=== PATIENT | male | born 1980 | race Caucasian/White ===

== ENCOUNTER 2021-01-20 15:38 | Emergency (ER) | payer SELFPAY ==
[2021-01-20] MEDS ORDERED: Ondansetron 4 MG Tab.DIS PO ONE (15:39)
[2021-01-20] MEDS ORDERED: Acetaminophen/oxyCODONE 325-5 MG Tab PO ONE (15:39)
[2021-01-20] MEDS ORDERED: Sodium Chloride 0.9% 10 ML Syringe FLUSH PRN (15:46)
[2021-01-20] MEDS ORDERED: HYDROmorphone 2 MG/ML SDV IVPUSH STA (15:51)
[2021-01-20] MEDS ORDERED: Ondansetron 4 MG/2 ML SDV IVPUSH STA (15:51)
[2021-01-20] MEDS ORDERED: Iopamidol 755 Mg/ML 100 ML Bottle IV ONE (15:58)
[2021-01-20] MEDS ORDERED: Sodium Chloride 0.9% 1,000 ML IV SCH (16:00)
[2021-01-20] MEDS ORDERED: Labetalol 20 MG/4 ML Syringe IVPUSH STA ×2 (16:10→17:01)
[2021-01-20] MEDS ORDERED: Labetalol 20 MG/4 ML Syringe IVPUSH ONE (16:49)
--- NOTE | 2021-01-20 17:28 | CT ---
INDICATION: Headache. Dizziness. CT HEAD WITHOUT CONTRAST: Spiral 3.75 mm axial sections were obtained through the brain without contrast with axial, sagittal and coronal reconstructions 01/20/21 - no comparisons. Total exam DLP was 1451.16 mGy-cm. Paranasal sinuses appeared normal. There are only a few ethmoidal air cells which do appear to be aerated. No cranial abnormality was identified. No shift of midline structures, ventricular abnormalities, or abnormal areas of density were identified. Torres-white matter interface appears normal. Calcifications are noted in the internal carotid and vertebral arteries. The orbits appear to be intact. IMPRESSION: Except for calcifications noted in the vertebral and internal carotid arteries, normal CT head without contrast - no acute intracranial abnormality. Follow-up MRI may be warranted if symptoms persist, as felt to be clinically necessary. Report was called to Dr. Myers at 1711 hours 01/20/21. [facility]
--- NOTE | 2021-01-20 17:32 | CR ---
INDICATION: Fever and cough. CHEST: An AP upright view of the chest was obtained 01/20/21 - no comparisons. Overlying EKG leads noted. The heart, mediastinum and bony thorax are unremarkable. A definite active infiltrate, effusion or pneumothorax was not identified. IMPRESSION: No definite active disease. MTDD
--- NOTE | 2021-01-20 17:40 | CT ---
INDICATION: Right and left lower quadrant pain. CT ABDOMEN AND PELVIS WITH CONTRAST: Spiral 3.75 mm axial sections were obtained through the abdomen and pelvis with 100 mL Isovue-370 (at 3 mL/second) with sagittal and coronal reconstructions 01/20/21 - no comparisons. Total exam DLP was 1617.94 mGy-cm. The lower lung whitlock and pleural spaces visualized appeared normal. The heart appeared normal in size. No pericardial effusion was seen. The appendix appeared normal, visualized on axial images 94-102 and coronal images 50-58. No evidence of free air or bowel obstruction was identified. The urinary bladder appears somewhat distended, raising question of urinary retention - correlate clinically. The prostate did not appear grossly enlarged. A right inguinal hernia is noted including only fat. It is small in size. No ventral hernia was suggested. The liver, gallbladder, adrenal glands, spleen, pancreas and common bile duct appear to be normal. The kidneys appeared normal except to note a few dense foci which may represent renal calcinosis and a small low-density lesion in the upper pole of the left kidney, likely a simple cyst. No definite obstructive uropathy is seen. Calcifications noted in the abdominal aorta, iliac and left femoral arteries as well as minimally in the right femoral artery. No retroperitoneal mass was seen with minimal retroperitoneal lymphadenopathy noted which is nonspecific. No gross bony abnormality was identified. IMPRESSION: 1. Possible urinary retention. 2. ASD. 3. Probable bilateral renal calcinosis with a probable simple cyst also noted at the upper pole of the left kidney. 4. Tiny right inguinal hernia including only fat. Report was called to Dr. Myers at 1711 hours 01/20/21. [facility]
[2021-01-20] MEDS ORDERED: Piperacillin/Tazobactam 4.5 GM in Sodium Chloride 0.9% 100 ML IV ONE (17:55)
[2021-01-20] MEDS ORDERED: Piperacillin/Tazobactam 4.5 GM in Sodium Chloride 0.9% 100 ML IV SCH (18:00)
[2021-01-20] MEDS ORDERED: Ketorolac 30 MG/ML SDV IVPUSH STA (18:14)
[2021-01-20] MEDS ORDERED: Morphine 4 MG/ML VIAL IVPUSH ONE (18:16)
[2021-01-20] MEDS ORDERED: Pantoprazole 40 MG Vial IVPUSH ONE (18:16)
--- NOTE | 2021-01-20 19:40 | EDM.PDOC ---
ED HPI GENERAL MEDICAL PROBLEM - General Chief Complaint: Abdominal Pain Stated Complaint: ABD PAIN Time Seen by Provider: 01/20/21 15:45 Source of Information: Reports: Patient History Limitations: Reports: No Limitations - History of Present Illness INITIAL COMMENTS - FREE TEXT/NARRATIVE: Patient presented to the ED because of abdominal pain which started 4 days ago and is progressively getting worse. The pain is sharp, 8/10, over the epigastric area and LUQ. He arrived from [facility] 5 days ago and has been having diarrhea. He took OTC imodium which helped wiyth his loose stools. He has a history of PUD but denies any melanotic stools and is not taking any medication. left upper abd Pain Score (Numeric/FACES): 10 - Related Data Allergies Allergy/AdvReac Type Severity Reaction Status Date / Time No Known Allergies Allergy Verified 01/20/21 17:31 Home Meds: Home Meds Omeprazole 20 mg PO DAILY #90 tablet.dr 01/20/21 [Rx] Potassium Chloride [Klor-Con M20] 40 meq PO TID #12 tab.er 01/20/21 [Rx] Past Medical History Cardiovascular History: Reports: Hypertension Gastrointestinal History: Reports: Other (See Below) Other Gastrointestinal History: hx of ulcer Social & Family History - Tobacco Use Tobacco Use Status *Q: Never Tobacco User - Recreational Drug Use Recreational Drug Use: No ED ROS GENERAL - Review of Systems Review Of Systems: See Below Constitutional: Reports: No Symptoms HEENT: Reports: No Symptoms Respiratory: Reports: No Symptoms Cardiovascular: Reports: No Symptoms Endocrine: Reports: No Symptoms GI/Abdominal: Reports: Abdominal Pain, Nausea Musculoskeletal: Reports: No Symptoms Skin: Reports: No Symptoms Neurological: Reports: No Symptoms ED EXAM, GI/ABD - Physical Exam Exam: See Below Exam Limited By: No Limitations General Appearance: Alert, No Apparent Distress Ears: Normal External Exam, Normal Canal, Hearing Grossly Normal Nose: Normal Inspection, Normal Mucosa, No Blood Throat/Mouth: Normal Inspection, Normal Lips, Normal Teeth, Normal Gums Head: Atraumatic, Normocephalic Neck: Normal Inspection, Supple, Non-Tender, Full Range of Motion Respiratory/Chest: No Respiratory Distress, Lungs Clear, Normal Breath Sounds, No Accessory Muscle Use, Chest Non-Tender Cardiovascular: Normal Peripheral Pulses, Regular Rate, Rhythm, No Edema, No JVD, No Murmur GI/Abdominal Exam: Normal Bowel Sounds, Soft, Other (Epigastric and LUQ T) Back Exam: Normal Inspection, Full Range of Motion Extremities: Normal Inspection, Normal Range of Motion, Non-Tender Neurological: Alert, Oriented, CN II-XII Intact Course - Vital Signs Text/Narrative:: Lab/CT/EKG/CXR result was reviewed and discussed with patient NS 1 L bolus Zofran 4 mg IV x1 Protonix 80 mg IV x1 Dilaudid 2 mg IV x1 GI cocktail 1 PO x1 Morphine 4 mg IV x1 Klor con 20 meq, 2 po x1 Last Recorded V/S: Last Vital Signs Temp 37.1 C 01/20/21 15:38 Pulse 85 01/20/21 15:38 Resp 16 01/20/21 15:38 BP 187/97 H 01/20/21 15:38 Pulse Ox 100 01/20/21 15:38 - Orders/Labs/Meds Orders: Active Orders 24 hr Category Date Time Status EKG Documentation Completion [RC] ASDIRECTED Care 01/20/21 15:48 Active CULTURE BLOOD [BC] Urgent Lab 01/20/21 15:55 Received CULTURE BLOOD [BC] Urgent Lab 01/20/21 16:40 Received Sodium Chloride 0.9% [Normal Saline] 1,000 ml Med 01/20/21 16:00 Active IV ASDIRECTED Sodium Chloride 0.9% [Saline Flush] Med 01/20/21 15:46 Active 10 ml FLUSH ASDIRECTED PRN Blood Culture x2 Reflex Set [OM.PC] Urgent Oth 01/20/21 15:50 Ordered Isolation [COMM] Routine Oth 01/20/21 15:48 Ordered Saline Lock Insert [OM.PC] Routine Oth 01/20/21 15:46 Ordered EKG 12 Lead [EK] Routine Ther 01/20/21 15:46 Ordered Medication Orders Sodium Chloride (Normal Saline) 1,000 mls @ 999 mls/hr IV ASDIRECTED LEENA Last Admin: 01/20/21 15:59 Dose: 999 mls/hr Documented by: [id number] Sodium Chloride (Sodium Chloride 0.9% 10 Ml Syringe) 10 ml FLUSH ASDIRECTED PRN PRN Reason: Keep Vein Open Last Admin: 01/20/21 16:08 Dose: 10 ml Documented by: [email or web address] Labs: Laboratory Tests 01/20/21 01/20/21 01/20/21 Range/Units 15:55 15:55 15:55 WBC 9.3 (3.2-10.1) x10-3/uL RBC 5.44 (3.90-5.90) x10(6)uL Hgb 16.0 (12.9-17.7) g/dL Hct 47.5 (38.3-50.1) % MCV 87.4 (80.8-98.7) fL MCH 29.4 (27.0-33.3) pg MCHC 33.6 (28.7-35.3) g/dL RDW 13.1 (12.4-15.0) % Plt Count 341 (117-477) x10(3)uL MPV 7.4 (6.7-11.0) fL Neut % (Auto) 63.4 (40.3-71.8) % Lymph % (Auto) 25.7 (15.8-45.3) % Screven % (Auto) 9.7 (5.5-15.2) % Eos % (Auto) 0.8 (0.1-6.8) % Baso % (Auto) 0.4 (0.3-3.8) % Neut # (Auto) 5.9 (1.7-6.9) x10-3/uL Lymph # (Auto) 2.4 (0.5-4.5) x10-3/uL Screven # (Auto) 0.9 (0.0-1.2) x10-3/uL Eos # (Auto) 0.1 (0.0-0.6) x10-3/uL Baso # (Auto) 0.0 (0.0-0.3) x10-3/uL PT 11.2 H (9.0-11.1) sec INR 1.04 (1.00-1.24) APTT 26.1 (24.4-33.2) SECONDS D-Dimer, Quantitative (0.0-0.59) mg/LFEU Sodium 139 (135-145) mmol/L Potassium 3.1 L (3.5-5.3) mmol/L Chloride 99 L (100-110) mmol/L Carbon Dioxide 20 L (21-32) mmol/L BUN 16 (7-18) mg/dL Creatinine 1.2 (0.70-1.30) mg/dL Est Cr Clr Drug Dosing TNP Estimated GFR (MDRD) > 60 (>60) BUN/Creatinine Ratio 13.3 (9-20) Glucose 105 (80-116) mg/dL Lactic Acid (0.4-2.0) mmol/L Calcium 9.1 (8.6-10.2) mg/dL Total Bilirubin 0.6 (0.1-1.3) mg/dL AST 19 (5-25) IU/L ALT 38 H (12-36) U/L Alkaline Phosphatase 66 (56-112) IU/L Troponin I (4.0-60.3) pg/mL Total Protein 8.8 H (6.0-8.0) g/dL Albumin 4.6 (3.5-5.2) g/dL Globulin 4.2 g/dL Albumin/Globulin Ratio 1.1 Amylase 42 (25-115) U/L Lipase (73-393) U/L Urine Color (YELLOW) Urine Appearance (CLEAR) Urine pH (5.0-6.5) Ur Specific Hector (1.010-1.025) Urine Protein (NEGATIVE) mg/dL Urine Glucose (UA) (NORMAL) mg/dL Urine Ketones (NEGATIVE) mg/dL Urine Occult Blood (NEGATIVE) Urine Nitrite (NEGATIVE) Urine Bilirubin (NEGATIVE) Urine Urobilinogen (NEGATIVE) mg/dL Ur Leukocyte Esterase (NEGATIVE) Urine RBC (0-5) Urine WBC (0-5) Ur Squamous Epith Cells (NS,R,O) Urine Bacteria (NS) SARS-CoV-2 RNA (MAUDE) (NEGATIVE) 01/20/21 01/20/21 01/20/21 Range/Units 15:55 15:55 15:55 WBC (3.2-10.1) x10-3/uL RBC (3.90-5.90) x10(6)uL Hgb (12.9-17.7) g/dL Hct (38.3-50.1) % MCV (80.8-98.7) fL MCH (27.0-33.3) pg MCHC (28.7-35.3) g/dL RDW (12.4-15.0) % Plt Count (117-477) x10(3)uL MPV (6.7-11.0) fL Neut % (Auto) (40.3-71.8) % Lymph % (Auto) (15.8-45.3) % Screven % (Auto) (5.5-15.2) % Eos % (Auto) (0.1-6.8) % Baso % (Auto) (0.3-3.8) % Neut # (Auto) (1.7-6.9) x10-3/uL Lymph # (Auto) (0.5-4.5) x10-3/uL Screven # (Auto) (0.0-1.2) x10-3/uL Eos # (Auto) (0.0-0.6) x10-3/uL Baso # (Auto) (0.0-0.3) x10-3/uL PT (9.0-11.1) sec INR (1.00-1.24) APTT (24.4-33.2) SECONDS D-Dimer, Quantitative (0.0-0.59) mg/LFEU Sodium (135-145) mmol/L Potassium (3.5-5.3) mmol/L Chloride (100-110) mmol/L Carbon Dioxide (21-32) mmol/L BUN (7-18) mg/dL Creatinine (0.70-1.30) mg/dL Est Cr Clr Drug Dosing Estimated GFR (MDRD) (>60) BUN/Creatinine Ratio (9-20) Glucose (80-116) mg/dL Lactic Acid 4.3 H* (0.4-2.0) mmol/L Calcium (8.6-10.2) mg/dL Total Bilirubin (0.1-1.3) mg/dL AST (5-25) IU/L ALT (12-36) U/L Alkaline Phosphatase (56-112) IU/L Troponin I 6.4 (4.0-60.3) pg/mL Total Protein (6.0-8.0) g/dL Albumin (3.5-5.2) g/dL Globulin g/dL Albumin/Globulin Ratio Amylase (25-115) U/L Lipase 101 (73-393) U/L Urine Color (YELLOW) Urine Appearance (CLEAR) Urine pH (5.0-6.5) Ur Specific Hector (1.010-1.025) Urine Protein (NEGATIVE) mg/dL Urine Glucose (UA) (NORMAL) mg/dL Urine Ketones (NEGATIVE) mg/dL Urine Occult Blood (NEGATIVE) Urine Nitrite (NEGATIVE) Urine Bilirubin (NEGATIVE) Urine Urobilinogen (NEGATIVE) mg/dL Ur Leukocyte Esterase (NEGATIVE) Urine RBC (0-5) Urine WBC (0-5) Ur Squamous Epith Cells (NS,R,O) Urine Bacteria (NS) SARS-CoV-2 RNA (MAUDE) (NEGATIVE) 01/20/21 01/20/21 01/20/21 Range/Units 15:55 16:30 16:42 WBC (3.2-10.1) x10-3/uL RBC (3.90-5.90) x10(6)uL Hgb (12.9-17.7) g/dL Hct (38.3-50.1) % MCV (80.8-98.7) fL MCH (27.0-33.3) pg MCHC (28.7-35.3) g/dL RDW (12.4-15.0) % Plt Count (117-477) x10(3)uL MPV (6.7-11.0) fL Neut % (Auto) (40.3-71.8) % Lymph % (Auto) (15.8-45.3) % Screven % (Auto) (5.5-15.2) % Eos % (Auto) (0.1-6.8) % Baso % (Auto) (0.3-3.8) % Neut # (Auto) (1.7-6.9) x10-3/uL Lymph # (Auto) (0.5-4.5) x10-3/uL Screven # (Auto) (0.0-1.2) x10-3/uL Eos # (Auto) (0.0-0.6) x10-3/uL Baso # (Auto) (0.0-0.3) x10-3/uL PT (9.0-11.1) sec INR (1.00-1.24) APTT (24.4-33.2) SECONDS D-Dimer, Quantitative 0.22 (0.0-0.59) mg/LFEU Sodium (135-145) mmol/L Potassium (3.5-5.3) mmol/L Chloride (100-110) mmol/L Carbon Dioxide (21-32) mmol/L BUN (7-18) mg/dL Creatinine (0.70-1.30) mg/dL Est Cr Clr Drug Dosing Estimated GFR (MDRD) (>60) BUN/Creatinine Ratio (9-20) Glucose (80-116) mg/dL Lactic Acid (0.4-2.0) mmol/L Calcium (8.6-10.2) mg/dL Total Bilirubin (0.1-1.3) mg/dL AST (5-25) IU/L ALT (12-36) U/L Alkaline Phosphatase (56-112) IU/L Troponin I (4.0-60.3) pg/mL Total Protein (6.0-8.0) g/dL Albumin (3.5-5.2) g/dL Globulin g/dL Albumin/Globulin Ratio Amylase (25-115) U/L Lipase (73-393) U/L Urine Color Yellow (YELLOW) Urine Appearance Clear (CLEAR) Urine pH 7.0 H (5.0-6.5) Ur Specific Hector 1.005 L (1.010-1.025) Urine Protein Negative (NEGATIVE) mg/dL Urine Glucose (UA) Normal (NORMAL) mg/dL Urine Ketones Negative (NEGATIVE) mg/dL Urine Occult Blood Negative (NEGATIVE) Urine Nitrite Negative (NEGATIVE) Urine Bilirubin Negative (NEGATIVE) Urine Urobilinogen Normal (NEGATIVE) mg/dL Ur Leukocyte Esterase Negative (NEGATIVE) Urine RBC 0-5 (0-5) Urine WBC 0-5 (0-5) Ur Squamous Epith Cells Occasional (NS,R,O) Urine Bacteria Rare H (NS) SARS-CoV-2 RNA (MAUDE) Negative (NEGATIVE) 01/20/21 01/20/21 Range/Units 18:30 18:30 WBC (3.2-10.1) x10-3/uL RBC (3.90-5.90) x10(6)uL Hgb (12.9-17.7) g/dL Hct (38.3-50.1) % MCV (80.8-98.7) fL MCH (27.0-33.3) pg MCHC (28.7-35.3) g/dL RDW (12.4-15.0) % Plt Count (117-477) x10(3)uL MPV (6.7-11.0) fL Neut % (Auto) (40.3-71.8) % Lymph % (Auto) (15.8-45.3) % Screven % (Auto) (5.5-15.2) % Eos % (Auto) (0.1-6.8) % Baso % (Auto) (0.3-3.8) % Neut # (Auto) (1.7-6.9) x10-3/uL Lymph # (Auto) (0.5-4.5) x10-3/uL Screven # (Auto) (0.0-1.2) x10-3/uL Eos # (Auto) (0.0-0.6) x10-3/uL Baso # (Auto) (0.0-0.3) x10-3/uL PT (9.0-11.1) sec INR (1.00-1.24) APTT (24.4-33.2) SECONDS D-Dimer, Quantitative (0.0-0.59) mg/LFEU Sodium (135-145) mmol/L Potassium (3.5-5.3) mmol/L Chloride (100-110) mmol/L Carbon Dioxide (21-32) mmol/L BUN (7-18) mg/dL Creatinine (0.70-1.30) mg/dL Est Cr Clr Drug Dosing Estimated GFR (MDRD) (>60) BUN/Creatinine Ratio (9-20) Glucose (80-116) mg/dL Lactic Acid 0.9 (0.4-2.0) mmol/L Calcium (8.6-10.2) mg/dL Total Bilirubin (0.1-1.3) mg/dL AST (5-25) IU/L ALT (12-36) U/L Alkaline Phosphatase (56-112) IU/L Troponin I 8.1 (4.0-60.3) pg/mL Total Protein (6.0-8.0) g/dL Albumin (3.5-5.2) g/dL Globulin g/dL Albumin/Globulin Ratio Amylase (25-115) U/L Lipase (73-393) U/L Urine Color (YELLOW) Urine Appearance (CLEAR) Urine pH (5.0-6.5) Ur Specific Hector (1.010-1.025) Urine Protein (NEGATIVE) mg/dL Urine Glucose (UA) (NORMAL) mg/dL Urine Ketones (NEGATIVE) mg/dL Urine Occult Blood (NEGATIVE) Urine Nitrite (NEGATIVE) Urine Bilirubin (NEGATIVE) Urine Urobilinogen (NEGATIVE) mg/dL Ur Leukocyte Esterase (NEGATIVE) Urine RBC (0-5) Urine WBC (0-5) Ur Squamous Epith Cells (NS,R,O) Urine Bacteria (NS) SARS-CoV-2 RNA (MAUDE) (NEGATIVE) Meds: Medications Generic Name Dose Route Start Last Admin Trade Name Freq PRN Reason Stop Dose Admin Sodium Chloride 1,000 mls @ 999 mls/hr 01/20/21 16:00 01/20/21 15:59 Normal Saline IV 999 mls/hr ASDIRECTED LEENA Administration Sodium Chloride 10 ml 01/20/21 15:46 01/20/21 16:08 Sodium Chloride 0.9% 10 Ml Syringe FLUSH 10 ml ASDIRECTED PRN Administration Keep Vein Open Discontinued Medications Generic Name Dose Route Start Last Admin Trade Name Freq PRN Reason Stop Dose Admin Al Hydroxide/Mg Hydroxide 15 0 ml 01/20/21 19:46 01/20/21 19:58 ml/ Lidocaine HCl 15 ml PO 01/20/21 19:47 30 ml ONETIME ONE Administration Hydromorphone HCl 2 mg 01/20/21 15:51 01/20/21 15:58 Hydromorphone 2 Mg/Ml Sdv IVPUSH 01/20/21 15:52 2 mg NOW STA Administration Piperacillin Sod/Tazobactam 100 mls @ 200 mls/hr 01/20/21 18:00 Sod 4.5 gm/ Sodium Chloride IV Q6H LEENA Piperacillin Sod/Tazobactam 100 mls @ 200 mls/hr 01/20/21 17:55 01/20/21 17:57 Sod 4.5 gm/ Sodium Chloride IV 01/20/21 18:24 200 mls/hr ONETIME ONE Administration Iopamidol 100 ml 01/20/21 15:58 01/20/21 16:27 Iopamidol 755 Mg/Ml 100 Ml Bottle IV 01/20/21 15:59 100 ml . DIRECTED ONE Administration Ketorolac Tromethamine 30 mg 01/20/21 18:14 Ketorolac 30 Mg/Ml Sdv IVPUSH 01/20/21 18:15 NOW STA Labetalol HCl 20 mg 01/20/21 16:10 Labetalol 20 Mg/4 Ml Syringe IVPUSH 01/20/21 16:11 NOW STA Protocol Labetalol HCl 3 mg 01/20/21 17:01 Labetalol 20 Mg/4 Ml Syringe IVPUSH 01/20/21 17:02 NOW STA Protocol Labetalol HCl 15 mg 01/20/21 16:49 01/20/21 16:49 Labetalol 20 Mg/4 Ml Syringe IVPUSH 01/20/21 16:50 15 mg ONETIME ONE Administration Protocol Morphine Sulfate 4 mg 01/20/21 18:16 01/20/21 18:26 Morphine 4 Mg/Ml Vial IVPUSH 01/20/21 18:17 4 mg ONETIME ONE Administration Ondansetron HCl 4 mg 01/20/21 15:51 01/20/21 15:58 Ondansetron 4 Mg/2 Ml Sdv IVPUSH 01/20/21 15:52 4 mg NOW STA Administration Pantoprazole Sodium 80 mg 01/20/21 18:16 01/20/21 18:33 Pantoprazole 40 Mg Vial IVPUSH 01/20/21 18:17 80 mg .BOLUS ONE Administration Potassium Chloride 40 meq 01/20/21 20:21 Potassium Chloride 20 Meq Tab.Er PO 01/20/21 20:22 NOW [facility] Departure - Departure Time of Disposition: 20:30 Disposition: Home, Self-Care 01 Condition: Good Clinical Impression: Abdominal pain, PUD (peptic ulcer disease), Hypokalemia - Discharge Information Prescriptions: Potassium Chloride [Klor-Con M20] 40 meq PO TID #12 tab.er Omeprazole 20 mg PO DAILY #90 tablet.dr Instructions: Abdominal Pain, Adult, Peptic Ulcer, [id number], Hypokalemia Referrals: PCP,Not In Area [Primary Care Provider] - Forms: ED Department Discharge Additional Instructions: Please read discharge instructions on abdominal pain, Peptic Ulcer , and low potassium Angie diet Zofran ODT 4 mg every 4 hours as needed for nausea Percocet 5/325, 1 tablet every 4 hours as needed for pain Omeprazole 20 mg daily Klor con 20 meq, 2 tablets 3 times daily for 2 days Follow up as needed Sepsis Event Note (ED) - Evaluation Sepsis Screening Result: No Definite Risk - Focused Exam Vital Signs: Vital Signs Temp Pulse Resp BP Pulse Ox 01/20/21 15:38 37.1 C 85 16 187/97 H 100 - My Orders Last 24 Hours: My Active Orders 01/20/21 15:46 Sodium Chloride 0.9% [Saline Flush] 10 ml FLUSH ASDIRECTED PRN Saline Lock Insert [OM.PC] Routine EKG 12 Lead [EK] Routine 01/20/21 15:48 EKG Documentation Completion [RC] ASDIRECTED Isolation [COMM] Routine 01/20/21 15:50 Blood Culture x2 Reflex Set [OM.PC] Urgent 01/20/21 15:55 CULTURE BLOOD [BC] Urgent 01/20/21 16:00 Sodium Chloride 0.9% [Normal Saline] 1,000 ml IV ASDIRECTED 01/20/21 16:40 CULTURE BLOOD [BC] Urgent - Assessment/Plan Last 24 Hours: My Active Orders 01/20/21 15:46 Sodium Chloride 0.9% [Saline Flush] 10 ml FLUSH ASDIRECTED PRN Saline Lock Insert [OM.PC] Routine EKG 12 Lead [EK] Routine 01/20/21 15:48 EKG Documentation Completion [RC] ASDIRECTED Isolation [COMM] Routine 01/20/21 15:50 Blood Culture x2 Reflex Set [OM.PC] Urgent 01/20/21 15:55 CULTURE BLOOD [BC] Urgent 01/20/21 16:00 Sodium Chloride 0.9% [Normal Saline] 1,000 ml IV ASDIRECTED 01/20/21 16:40 CULTURE BLOOD [BC] Urgent
[2021-01-20] MEDS ORDERED: Alum Hydroxide/Mag Hydroxide 15 ML, Lidocaine 2% 15 ML PO ONE ×2 (19:46)
[2021-01-20] MEDS ORDERED: Potassium Chloride 20 MEQ Tab.ER PO STA (20:21)
== END 2021-01-20 20:50 | disposition home or self-care (01) ==
LOC: FB.ED 15:38
DX: K27.9 Peptic ulcer, site unspecified, unspecified as acute or chronic, without hemorrhage or perforation (principal); E87.6 Hypokalemia; I10 Essential (primary) hypertension; Z79.899 Other long term (current) drug therapy; Z20.822 Contact with and (suspected) exposure to COVID-19
CPT/HCPCS: 36415; 70450; 71045; 74177; 80053; 81001; 82150; 83605; 83690; 84484; 85025; 85379; 85610; 85730; 87040; 87635; 87804; 93005; 96365; 96375; 99285; A9270; C9113; J1170; J2270; J2405; J2543; J3490; J7030; Q9967; U0002